=== PATIENT | male | born 1960 | race Caucasian/White ===

== ENCOUNTER 2017-10-08 19:11 | Emergency (ER) | payer MEDICAID, MEDICARE ==
[2017-10-08 19:43] VITALS: BP 146/87
[2017-10-08] MEDS ORDERED: Aspirin 81 mg CHEW TAB* 81 MG TAB.CHEW PO ONE (19:43)
--- NOTE | 2017-10-08 19:52 | UC ---
Cardiac HPI - HPI Summary HPI Summary: patient had a syncopal episode yesterday---comes in today with jaw pain denies SOB or chest pain, does not have any teeth and has had no injury - History of Current Complaint Chief Complaint: UCGeneralIllness Stated Complaint: JAW PAIN Time Seen by Provider: 10/08/17 19:34 Hx Obtained From: Patient Onset/Duration: Sudden Onset Timing: Constant Pain Intensity: 5 Chest Pain Location: Discrete at: - "JAW PAIN" Aggravating Factor(s): Nothing Alleviating Factor(s): Nothing Associated Signs & Symptoms: Positive: Weakness, Dizziness, Syncope - Allergy/Home Medications Allergies/Adverse Reactions: Allergies Allergy/AdvReac Type Severity Reaction Status Date / Time No Known Allergies Allergy Verified 10/08/17 19:44 Home Medications: Home Medications Aspirin 81 mg CHEW TAB* 10/08/17 [History] NK [No Home Medications Reported] 10/08/17 [History Confirmed 10/08/17] PMH/Surg Hx/FS Hx/Imm Hx Previously Healthy: No - undoctored, - Surgical History Surgical History: None - Family History Known Family History: Positive: Unknown - Social History Occupation: Disabled Lives: With Family Alcohol Use: None Substance Use Type: None Smoking Status (MU): Former Smoker Review of Systems Constitutional: Negative Skin: Negative Eyes: Negative ENT: Negative Respiratory: Negative Cardiovascular: Negative, Other - "JAW PAIN" and Syncope Gastrointestinal: Negative Genitourinary: Negative Motor: Negative Neurovascular: Negative Musculoskeletal: Negative Neurological: Negative Psychological: Negative Is Patient Immunocompromised?: No All Other Systems Reviewed And Are Negative: Yes Physical Exam Triage Information Reviewed: Yes Appearance: Ill-Appearing - chronic, Pain Distress - mild, Obese Vital Signs: Initial Vital Signs Temp 99.6 F 10/08/17 19:28 Pulse 130 10/08/17 19:28 Resp 20 10/08/17 19:28 BP 146/87 10/08/17 19:28 Pulse Ox 93 10/08/17 19:28 Vital Signs Reviewed: Yes Eye Exam: Normal Eyes: Positive: Conjunctiva Clear ENT Exam: Normal ENT: Positive: Normal ENT inspection, Hearing grossly normal. Negative: Nasal congestion, Trismus, Muffled voice, Hoarse voice Dental Exam: Normal Neck exam: Normal Neck: Positive: Supple, Nontender Respiratory Exam: Normal Respiratory: Positive: Chest non-tender, Lungs clear, Normal breath sounds, No respiratory distress, No accessory muscle use Cardiovascular Exam: Normal Cardiovascular: Positive: No Murmur, Pulses Normal, Brisk Capillary Refill, Tachycardia Musculoskeletal Exam: Normal Musculoskeletal: Positive: Strength Intact, ROM Intact, No Edema Neurological Exam: Normal Neurological: Positive: Alert, Muscle Tone Normal Psychological Exam: Normal Skin Exam: Normal Diagnostics - EKG Cardiac Rate: Tachycardia Cardiac Rhythm: Sinus: Normal Ectopy: None ST Segment: Normal EKG Comparison: Other - none to compair - Assessment/Plan Course Of Treatment: O2 3 l nc, saline lock asprin, to [facility] by EMS - Clinical Impression Provider Diagnoses: tachycardia, syncope - Physician Notifications Discussed Patient Care With: Delmi Singh Time Discussed With Above Provider: 19:50 Instructed by Provider To: Transfer Discharge - Sign-Out/Discharge Documenting (check all that apply): Patient Departure - Discharge Plan Condition: Guarded Disposition: TRANS HIGHER LVL OF CARE FAC Referrals: No Primary Care Phys,NOPCP [Primary Care Provider] - - Billing Disposition and Condition Condition: GUARDED Disposition: Trans Higher Lvl of Care Fac
== END 2017-10-08 20:05 | disposition short-term general hospital (02) ==
LOC: UCEAST 19:11
DX: R00.0 Tachycardia, unspecified (principal); R55 Syncope and collapse; R68.84 Jaw pain; R53.1 Weakness; R42 Dizziness and giddiness; Z87.891 Personal history of nicotine dependence
CPT/HCPCS: 93005; 99203; A9270-GY; G0463

== ENCOUNTER 2017-10-08 20:27 | Emergency (ER) | payer MEDICARE, MEDICAID ==
[2017-10-08] MEDS ORDERED: NS 0.9% 1000 ML*IV.FLUID IV ONE (20:51)
[2017-10-08] MEDS ORDERED: Clindamycin 600 MG IVPREMIX(* 600 MG/50 ML SDV IV ONE (20:52)
--- NOTE | 2017-10-08 20:54 | ED ---
Complex/Multi-Sys Presentation - HPI Summary HPI Summary: This patient is a 57 year old M BIBA to [facility] and referred from urgent care with a chief complaint of upper right toothache that began earlier today. The patient rates the pain 7/10 in severity. Symptoms aggravated by nothing. Symptoms alleviated by nothing. Patient reports jaw pain and fever. Patient denies abd pain and CP. - History Of Current Complaint Chief Complaint: EDFever Time Seen by Provider: 10/08/17 20:46 Hx Obtained From: Patient Onset/Duration: Sudden Onset, Lasting Hours, Still Present Timing: Constant Severity Currently: Moderate Severity Initially: Moderate Location: Pain At: - Upper, right jaw Aggravating Factor(s): Nothing Alleviating Factor(s): Nothing Associated Signs And Symptoms: Positive: Fever, Other - Jaw pain. Negative: Chest Pain, Abdominal Pain - Allergies/Home Medications Allergies/Adverse Reactions: Allergies Allergy/AdvReac Type Severity Reaction Status Date / Time No Known Allergies Allergy Verified 10/08/17 19:44 Home Medications: Home Medications Aspirin EC TAB* [Ecotrin EC Low Dose 81 MG*] 81 mg PO DAILY 10/08/17 [History Confirmed 10/08/17] PMH/Surg Hx/FS Hx/Imm Hx Previously Healthy: Yes Opthamlomology History: Denies: Hx Legally Blind EENT History: Denies: Hx Deafness Infectious Disease History: No Infectious Disease History: Denies: Traveled Outside the [place] in Last 30 Days - Family History Known Family History: Positive: Unknown - Social History Alcohol Use: None Substance Use Type: Reports: None Smoking Status (MU): Former Smoker Review of Systems Positive: Fever Positive: Dental Pain Negative: Chest Pain Negative: Abdominal Pain Positive: Other - Positive jaw pain All Other Systems Reviewed And Are Negative: Yes Physical Exam - Summary Physical Exam Summary: Appearance: Well-appearing, Well-nourished, lying in bed comfortably Skin: Warm, dry, no obvious rash Eyes: sclera anicteric, no conjunctival pallor ENT: mucous membranes moist, pharynx appears normal Dental: Swelling in the left lower jaw with some drainage and pus from an obvious dental abscess Neck: Supple, nontender Respiratory: Clear to auscultation, no signs of respiratory distress Cardiovascular: Normal S1, S2. No murmurs. Normal distal pulses in tibial and radial bilaterally. Abdomen: Soft, nontender, normal active bowel sounds present Musculoskeletal: Normal, Strength/ROM Intact Neurological: A&Ox3, awake and alert, mentation is normal, speech is fluent and appropriate Psychiatric: affect is normal, does not appear anxious or depressed Triage Information Reviewed: Yes Vital Signs On Initial Exam: Initial Vitals Pulse BP Pulse Ox 120 151/101 94 10/08/17 20:33 10/08/17 20:33 10/08/17 20:33 Vital Signs Reviewed: Yes Diagnostics - Vital Signs Vital Signs Temp Pulse Resp BP Pulse Ox 10/08/17 20:36 100.7 F 124 20 151/101 94 10/08/17 20:33 120 151/101 94 - Laboratory Result Diagrams: 10/08/17 21:24 10/08/17 21:24 Lab Statement: Any lab studies that have been ordered have been reviewed, and results considered in the medical decision making process. Complex Multi-Symp Course/Dx - Diagnoses Provider Diagnoses: Dental abscess Discharge - Sign-Out/Discharge Documenting (check all that apply): Patient Departure - Discharge Plan Condition: Good Disposition: HOME Prescriptions: Clindamycin HCl 300 mg PO TID #30 capsule Naproxen TAB* [Naprosyn 375 mg TAB*] 375 mg PO BID #20 tab Patient Education Materials: Dental Abscess (ED) Referrals: No Primary Care Phys,NOPCP [Primary Care Provider] - Additional Instructions: Once the infection has calmed down, you will need to see a dentist to have the underlying tooth problem addressed, or this will happen again. - Billing Disposition and Condition Condition: GOOD Disposition: Home
[2017-10-08 21:33] LABS: ABS Basophils 0 10^3/ul (0-0.2); ABS Eosinophils 0 10^3/ul (0-0.6); ABS Lymphocytes 1.6 10^3/ul (1.0-4.8); ABS Monocytes 0.6 10^3/ul (0-0.8); ABS Neutrophils 5.1 10^3/ul (1.5-7.7); ABS Nucleated RBC 0 10^3/ul; Eosinophil % 0.3 % (0-6); Hematocrit 43 % (42-52); Hemoglobin 15.3 g/dl (14.0-18.0); Lymphocyte % 21.3 % (25-47); Mean Corpuscular HGB Conc 35 g/dl (31-36); Mean Corpuscular Hemoglobin 30 pg (27-31); Mean Corpuscular Volume 83 fL (80-94); Mean Platelet Volume 8.5 um3 (7.4-10.4); Nucleated Red Blood Cells % 0.1; Platelet Count 146 10^3/ul (150-450); Red Blood Count 5.19 10^6/ul (4.00-5.40); Red Cell Distribution Width 15 % (10.5-15); White Blood Count 7.4 10^3/ul (3.5-10.8)
[2017-10-08 21:38] LABS: INR 1.01 (0.77-1.02)
[2017-10-08 21:50] LABS: EGFR Non-African American 80.2 (>60)
[2017-10-09 02:16] VITALS: BP 133/85
== END 2017-10-09 02:20 | disposition home or self-care (01) ==
LOC: ED 20:27
DX: K04.7 Periapical abscess without sinus (principal); Z87.891 Personal history of nicotine dependence; R00.0 Tachycardia, unspecified; R55 Syncope and collapse; R68.84 Jaw pain; R53.1 Weakness; R42 Dizziness and giddiness
CPT/HCPCS: 36415; 80053; 83605; 85025; 85610; 87040; 96361; 96365; 96366; 99284